=== PATIENT | female | born 1955 | race American Indian/Alaskan Native ===

== ENCOUNTER 2016-09-20 10:45 | Emergency (ER) | payer MEDICARE ==
[2016-09-20 10:45] VITALS: BMI 31.2
[2016-09-20 10:52] VITALS: RESP 18; TEMP 98
[2016-09-20] MEDS ORDERED: Tmp-Smz 800 mg-160 mg DS Tab PO STA (11:15)
[2016-09-20] MEDS ORDERED: Oxycodone/Acetaminophen 5/325 mg Tab PO STA (11:15)
[2016-09-20] MEDS ORDERED: Oxycodone/Acetaminophen 5/325 mg Tab ONE (11:19)
[2016-09-20] MEDS ORDERED: Tmp-Smz 800 mg-160 mg DS Tab ONE (11:19)
--- NOTE | 2016-09-20 11:19 | C.PDOC ---
History Of Present Illness NEW ONSET SWELLING R HAND X 3 DAYS. PAIN INITIALLY WORSE TOP OF R HAND NOW W GEN HAND SWELLING. WORSE W MOVEMENT. NO FEVER, CHILLS. HO ECZEMA, PS HAS OCC ITCHY SKIN. NO ASSOC WEAK/NUMB. NO RELIEF W IBUPROFEN 800 MG. DENIES HO DM EXAM MILD DIST NONTOXIC SKIN +CELLULITIS DORSAL R HAND, INTACT NO LESIONS. WRIST, FINGERS SPARED. NO LYMPHANGITIS. NO PALMAR LESIONS EXT R HAND +EDEMA NONPITTING LIMITED ROM DUE TO PAIN. ATRAUM. PAIN W FINGER FLEXION, BETTER W EXTENSION. REMAINDER NEG MDM DRUG LIST REVIEWED, NO FARZANA INHIBITORS. PROBABLE CELLULITIS. NO IMPROVE W MAX DOSE NSAIDS. DC PERCOCET, ABX. Time Seen by Provider: 09/20/16 11:06 Chief Complaint (Nursing): Finger,Hand,&Wrist History Per: Patient History/Exam Limitations: no limitations Onset/Duration Of Symptoms: Days (3) Current Symptoms Are (Timing): Still Present Quality: "Pain" Exacerbating Factor(s): Movement Additional History Per: Patient Past Medical History Reviewed: Historical Data, Nursing Documentation, Vital Signs Vital Signs: Last Vital Signs Temp 98 F 09/20/16 10:51 Pulse 89 09/20/16 11:55 Resp 18 09/20/16 11:55 BP 119/75 09/20/16 11:55 Pulse Ox 98 09/20/16 11:55 - Medical History PMH: Arthritis, Back Problems, HTN, Hyperlipidemia Denies: Asthma, Chronic Kidney Disease Surgical History: No Surg Hx - [facility] Procedures INJECT/INFUSE NEC (01/07/15) Family History: States: Unknown Family Hx - Social History Hx Alcohol Use: Yes Hx Substance Use: No Review Of Systems Except As Marked, All Systems Reviewed And Found Negative. Constitutional: Negative for: Fever, Chills Musculoskeletal: Positive for: Hand Pain (right, with swelling ) Physical Exam - Physical Exam Appears: Non-toxic, Other (mild distress ) Skin: Warm, Dry, Other (+CELLULITIS DORSAL R HAND, INTACT NO LESIONS. WRIST, FINGERS SPARED. NO LYMPHANGITIS. NO PALMAR LESIONS) Head: Atraumatic Eye(s): bilateral: Normal Inspection Oral Mucosa: Moist Neck: Normal ROM, Supple Chest: Symmetrical, No Deformity, No Tenderness Cardiovascular: Rhythm Regular, No Murmur Respiratory: Normal Breath Sounds, No Rales, No Rhonchi, No Wheezing Back: Normal Inspection, No Vertebral Tenderness, No Paraspinal Tenderness Extremity: Normal ROM, Capillary Refill (less than 2 seconds ), Other (+EDEMA NONPITTING LIMITED ROM DUE TO PAIN. ATRAUM. PAIN W FINGER FLEXION, BETTER W EXTENSION.) Neurological/Psych: Oriented x3, Normal Speech, Normal Cognition Gait: Steady ED Course And Treatment - Laboratory Results Result Diagrams: 09/20/16 11:31 O2 Sat by Pulse Oximetry: 99 (on RA) Pulse Ox Interpretation: Normal Progress Note: Patient received Bactrim PO, Keflex PO, and Percocet PO. Medical Decision Making Medical Decision Making: DRUG LIST REVIEWED, NO FARZANA INHIBITORS. PROBABLE CELLULITIS. NO IMPROVE W MAX DOSE NSAIDS. DC PERCOCET, ABX. Disposition Counseled Patient/Family Regarding: Diagnosis, Need For Followup, Rx Given - Disposition Referrals: YOUR,PMD [Other] Disposition: HOME/ ROUTINE Disposition Time: 11:20 Condition: GOOD Additional Instructions: RETURN IF FEVER > 100.6, WORSENING SYMPTOMS. FOLLOW UP WITH YOUR PMD. APPLY ICE TO AFFECTED AREA. Prescriptions: Cephalexin [cephalexin] 500 mg PO BID #14 cap oxyCODONE/Acetaminophen [Percocet 5/325 mg Tab] 1 ea PO Q6 PRN #10 tab PRN Reason: Pain, Moderate (4-7) Sulfamethoxazole/Trimethoprim [Bactrim DS 800 mg-160 mg] 1 tab PO BID #14 tab Instructions: Cellulitis (ED) Forms: Work Excuse - Clinical Impression Clinical Impression: Cellulitis of hand - Scribe Statement The provider has reviewed the documentation as recorded by the Shefalie (Cyndi El) Provider Attestation: All medical record entries made by the Kulwant were at my direction and personally dictated by me. I have reviewed the chart and agree that the record accurately reflects my personal performance of the history, physical exam, medical decision making, and the department course for this patient. I have also personally directed, reviewed, and agree with the discharge instructions and disposition.
[2016-09-20 11:33] LABS: BASO # 0.1 K/uL (0.0-0.2); EOS # 0.1 K/uL (0.0-0.7); EOS % 1.3 % (0.0-4.0); HEMATOCRIT 41.2 % (34.0-47.0); LYMPH # 2.5 K/uL (1.0-4.3); LYMPH % 27.1 % (20.0-40.0); MEAN CELL VOLUME 79.8 fL (81.0-99.0); MEAN CORPUSCULAR HEMOGLOBIN 25.7 pg (27.0-31.0); MEAN CORPUSCULAR HGB CONC 32.2 g/dL (33.0-37.0); MEAN PLATELET VOLUME 9.9 fL (7.2-11.7); MONO # 0.5 K/uL (0.0-0.8); MONO % 5.9 % (0.0-10.0); NRBC % 0.1 % (0.0-2.0); RED CELL DISTRIBUTION WIDTH 14.9 % (11.5-14.5); WHITE BLOOD COUNT 9.1 K/uL (4.8-10.8)
[2016-09-20 11:56] VITALS: BP 119/75; PULSE 89
[2016-09-20 22:11] VITALS: O2SAT 99
== END 2016-09-20 11:55 | disposition home or self-care (01) ==
LOC: C.ER 10:45
DX: L03.113 Cellulitis of right upper limb (principal)